=== PATIENT | female | born 1980 | race Caucasian/White ===

== ENCOUNTER 2020-10-29 16:10 | Emergency (ER) | payer OTHER ==
[~2020-10-29] VITALS: Ht 167.6 cm; Wt 77.1 kg
[2020-10-29 16:34] VITALS: BP_SYST 136
[2020-10-29] MEDS ORDERED: CEPH500C2 PO (17:19)
[2020-10-29 17:29] VITALS: BP_SYST 133
== END 2020-10-29 17:30 | disposition home or self-care (01) ==
LOC: SED 16:10
DX: N64.89 Other specified disorders of breast (principal)
CPT/HCPCS: 99283